=== PATIENT | female | born 1990 | race Caucasian/White ===

== ENCOUNTER 2018-10-04 15:46 | Inpatient (IN) ==
--- OUTSIDE RECORDS SUMMARY | 2018-10-04 15:49 | External Medical Summary | Continuity of Care Document ---
:1990 Author Name Kye M.D. 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 , M.D. Refills: 0 Effexor XR 150 MG Oral Capsule Extended Release 24 Hour; TAKE 3 CAPSULE Daily TDD:450 mg , M.D. Refills: 0 Xanax 1 MG Oral Tablet; TAKE 1 TABLET DAILY. , M.D. Refills: 0 Wellbutrin XL 150 MG Oral Tablet Extende d Release 24 Hour; TAKE 3 TABLETS DAILY. TDD:450 mg , M.D. Refills: 0 Adderall 10 MG Oral Tablet; TAKE 1 TABLET DAILY. , M.D. Refills: 0 Procedures History of Oral Surgery Tooth Extraction Status: Completed History of Pap Smear (+) Low Grade Squamous Intraepithelial Status: Completed Lesion Gynecologic Services Intrauterine Device (IUD) Insertion Immunizations Immunizations not documented Social History - Smoking Status Never smoker Plan of Treatment Planned Observations Planned Goals not documented Results No Known Results Results not documented
[2018-10-04] MEDS ORDERED: KETOROLAC TROMETHAMINE 15 MG/ML VIAL IV ONE (16:47)
[2018-10-04] MEDS ORDERED: cefTRIAXone SODIUM 1,000 MG/50 ML BAG IV STA (16:47)
[2018-10-04] MEDS ORDERED: SODIUM CHLORIDE 0.9% 1000ML 1,000 ML IV ONE (16:48)
[2018-10-04 17:25] LABS: Appearance Urine Turbid (Clear); Bilirubin Urine Negative (Negative); Blood Urine 1+ (Negative); Color Urine Yellow; Epithelial Cell Urine Auto >30 /lpf (0-5); Glucose Urine UA Negative (Negative); Ketones Urine Negative (Negative); Leukocyte Esterase Urine 2+ (Negative); Nitrite Urine Negative (Negative); Protein Urine 1+ (Negative); RBC Urine Automated 0-4 /hpf (0-4); Specific Gravity Urine 1.024 (1.000-1.030); Urobilinogen Urine Negative (Negative); WBC Urine Automated >30 /hpf (0-5)
[2018-10-04 17:39] LABS: Basophils # (auto) 0.03 K/uL (0-0.2); Basophils % (auto) 0.2 %; Eosinophils # (auto) 0.09 K/uL (0-0.5); Eosinophils % (auto) 0.6 %; Hematocrit (blood only) 35.3 % (37-47); Hemoglobin 11.7 g/dL (12.0-16.0); Immature Granulocytes # (auto) 0.04 K/uL (0.00-0.02); Immature Granulocytes % (auto) 0.3 %; Lymphocytes % (auto) 15.9 %; Mean Corpuscular Hgb Conc 33.1 g/dL (32-36); Mean Corpuscular Volume 87.4 fL (80-100); Mean Platelet Volume 10.8 fL (7.4-10.4); Monocytes # (auto) 1.92 K/uL (0.11-0.59); Monocytes % (auto) 13.3 %; Neutrophils # (auto) 10.09 K/uL (1.4-6.5); Neutrophils % (auto) 69.7 %; Platelet Count 333 K/uL (130-400); RDW Coefficient of Variation 14.5 % (11.5-14.5); RDW Standard Deviation 46.5 fL (36.4-46.3); Red Blood Count 4.04 M/uL (4.2-5.4); White Blood Count 14.47 K/uL (4.8-10.8)
--- NOTE | 2018-10-04 17:39 | Emergency Department Note ---
ED Visit Note I saw and assisted in the care of this patient with Dr. Ferguson. Please see her note for further details. . Resident Activity Tracking Resident Involvement: Resident Care Provided Care Provided: Adult ED
[2018-10-04 17:43] LABS: Bacteria Urine Automated 1+ (Negative)
[2018-10-04 17:47] LABS: Albumin Level 3.1 gm/dl (3.4-5.0); BUN Creatinine Ratio 10.6 (10-20); Calcium 8.5 mg/dl (8.5-10.1); Creatinine Clr Calc Pharmacy 51.7 ml/min; Potassium 3.1 mmol/L (3.5-5.1)
[2018-10-04 17:50] LABS: Albumin Globulin Ratio 0.8 (0.9-2); Bilirubin,Total 0.2 mg/dl (0.2-1); Total Protein 7.1 gm/dl (6.4-8.2)
[2018-10-04] MEDS ORDERED: IOVERSOL 100ml IV PRN (18:15)
--- NOTE | 2018-10-04 18:20 | Emergency Department Note ---
Entered by Domi Gordon acting as a scribe for Haily Ferguson MD History of Present Illness General Chief complaint: Back Injury/Pain Stated complaint: BACK PAIN, HEADACHE AND FEVER Time Seen by Provider: 10/04/18 16:56 Source: patient History of Present Illness Provider complaint: right flank pain Onset (ago): day(s) 2 Location: back, abdomen and right Pain Consistency: + constant Maximum Pain Intensity: 10 Quality: + other (pain) Associated symptoms: + denies other symptoms (urinary symptoms) and + headaches; no nausea/vomiting The patient is a 28 year old female who presents to the Emergency Department with complaints of constant right flank pain that began 3 days ago. The patient states that she has also had fevers and chills and that her highest temperature was at 102. She states that she was seen at [facility] 2 days ago, was told she has a UTI, and was placed on Cipro. The patient denies having any urinary symptoms. She reports having a headache but denies nausea and vomiting. The patient denies a history of kidney stones. She reports a history of ADHD and depression. Home Medications Home Medications Medication Instructions Recorded Confirmed Type alprazolam 1 mg PO QAM 10/04/18 10/04/18 History bupropion HCl 150 mg PO QAM 10/04/18 10/04/18 History bupropion HCl 300 mg PO QAM 10/04/18 10/04/18 History ciprofloxacin HCl 500 mg PO BID 10/04/18 10/04/18 History dextroamphetamine-amphetamine 10 mg PO DAILY 10/04/18 10/04/18 History dextroamphetamine-amphetamine 15 mg PO QAM 10/04/18 10/04/18 History dextroamphetamine-amphetamine 25 mg PO QAM 10/04/18 10/04/18 History lamotrigine 200 mg PO QAM 10/04/18 10/04/18 History venlafaxine 450 mg PO QAM 10/04/18 10/04/18 History Allergies Allergy/AdvReac Type Severity Reaction Status Date / Time gluten Allergy Unknown GI SYMPTOMS Verified 10/04/18 16:31 milk Allergy Unknown GI SYMPTOMS Verified 10/04/18 16:31 Past Med/Surg History Medical History Left ankle sprain (Acute) Social History Preferred Language: Armenian Communication Ability: Effective Alarm Signaler Required: No Beliefs That Will Affect Care: None Current Living Situation: Alone Feels Safe at Home: Yes Safety Concerns: Feels Safe At This Time Smoking Status: Never smoker Hx Alcohol Use: Yes Alcohol type: hard liquor Hx Substance Use: No Review of Systems See HPI for pertinent positives & negatives. and A total of 10 systems reviewed and were otherwise negative Physical Exam Vital Signs Vital Signs - 24 hr 10/04/18 15:53 10/04/18 17:00 10/04/18 17:38 Temperature 37.2 C Temperature Source Oral Sepsis Recent Fever Within 48 Hours Yes Sepsis New/Unexplained Change in Mental Status No Sepsis Action Taken by Nursing No Action Required Pulse Rate 98 H 79 Pulse Rate [Left] 79 Pulse Rhythm Regular Regular Pulse Strength Normal Respiratory Rate 20 16 12 Respiratory Effort / Characteristics Non-Labored Spontaneous Non-Labored Spontaneous Respiratory Depth Normal Respiratory Pattern Regular Blood Pressure 94/53 L Blood Pressure [Left Arm] 96/58 L Blood Pressure Mean 66 Blood Pressure Mean [Left Arm] 70 Blood Pressure Position Sitting Blood Pressure Position [Left Arm] Lying Pulse Oximetry 97 100 99 Oxygen Delivery Method Nasal Cannula Room Air Room Air 10/04/18 18:24 Temperature Temperature Source Sepsis Recent Fever Within 48 Hours Sepsis New/Unexplained Change in Mental Status Sepsis Action Taken by Nursing Pulse Rate Pulse Rate [Left] 73 Pulse Rhythm Pulse Strength Respiratory Rate 16 Respiratory Effort / Characteristics Non-Labored Spontaneous Respiratory Depth Respiratory Pattern Blood Pressure Blood Pressure [Left Arm] 100/55 L Blood Pressure Mean Blood Pressure Mean [Left Arm] 70 Blood Pressure Position Blood Pressure Position [Left Arm] Pulse Oximetry 99 Oxygen Delivery Method Room Air Vital signs reviewed. Patient was noted to be mildly hypotensive. General: Well-appearing female, in no significant distress. HEENT: No scleral icterus, PERRLA, neck supple. Atraumatic. Cardiovascular: Regular rate and rhythm, no extra sounds. Pulmonary: Clear to auscultation bilaterally, normal work of breathing. Abdomen: Soft, nontender, nondistended, positive bowel sounds. Musculoskeletal: Atraumatic, no peripheral edema. Right greater than left CVA tenderness. Neurologic: Patient awake alert and oriented x 3. Skin: Warm, dry, no rash Course 1632: The patient was evaluated by Dr. Sinclair-Resident. 1704: The patient was evaluated in room C3. A history and physical were performed. Administered Medications Hydromorphone HCl (Dilaudid) 0.5 mg IV Q3H PRN PRN Reason: Moderate Pain (4,5,6) Stop: 10/18/18 21:33 Last Admin: 10/05/18 07:44 Dose: 0.5 mg Documented by: [id number] Dextrose/Lactated Ringer's (D5w And Lactated Ringers) 1,000 mls @ 80 mls/hr IV .[id number] ANDRES Stop: 11/03/18 19:59 Last Admin: 10/05/18 07:45 Dose: 80 mls/hr Documented by: [id number] Infusion: 10/05/18 07:45 Dose: 80 mls/hr Documented by: [id number] Admin: 10/04/18 20:42 Dose: 80 mls/hr Documented by: [id number] Ciprofloxacin (Cipro) 400 mg in 200 mls @ 100 mls/hr IV PREOP ANDRES; Protocol Stop: 10/06/18 07:54 Last Admin: 10/05/18 11:25 Dose: 100 mls/hr Documented by: [id number] Miscellaneous (Order Awaiting Action) 1 ea N/A QS ANDRES Stop: 11/04/18 00:00 Last Admin: 10/05/18 10:06 Dose: Not Given Documented by: [id number] Admin: 10/05/18 00:21 Dose: Not Given Documented by: [id number] Miscellaneous (Order Awaiting Action) 1 ea N/A QS ANDRES Stop: 11/04/18 00:00 Last Admin: 10/05/18 10:06 Dose: Not Given Documented by: [id number] Admin: 10/05/18 00:22 Dose: Not Given Documented by: [id number] Discontinued Medications Ceftriaxone Sodium (Rocephin) 1,000 mg in 50 mls @ 100 mls/hr IV NOW STA Stop: 10/04/18 17:16 Last Infusion: 10/04/18 18:13 Dose: 0 mls/hr Documented by: [id number] Admin: 10/04/18 17:43 Dose: 100 mls/hr Documented by: [id number] Sodium Chloride (Nss 1000ml) 1,000 mls @ 999 mls/hr IV .Q1H1M ONE Stop: 10/04/18 17:48 Last Infusion: 10/04/18 18:17 Dose: 0 mls/hr Documented by: [id number] Admin: 10/04/18 17:16 Dose: 999 mls/hr Documented by: [id number] Ioversol (Optiray 320 100ml) 93 ml IV ONCE PRN PRN Reason: Interaction Checking Stop: 10/08/18 18:14 Last Admin: 10/04/18 18:16 Dose: 93 ml Documented by: [id number] Ketorolac Tromethamine (Toradol) 15 mg IV NOW ONE Stop: 10/04/18 16:48 Last Admin: 10/04/18 17:16 Dose: 15 mg Documented by: [id number] Morphine Sulfate (Morphine Sulfate) 2 mg IV NOW STA Stop: 10/04/18 18:38 Last Admin: 10/04/18 18:42 Dose: 2 mg Documented by: [id number] Ondansetron HCl (Zofran) 4 mg IV NOW STA Stop: 10/04/18 18:38 Last Admin: 10/04/18 18:42 Dose: 4 mg Documented by: [id number] Potassium Chloride (Klor-Con M20) 40 meq PO NOW STA Stop: 10/04/18 18:32 Last Admin: 10/04/18 18:42 Dose: 40 meq Documented by: [id number] Medical Decision Making Differential Diagnosis Differential diagnosis: Etiologies such as shingles, pyelonephritis/UTI, renal colic, appendicitis, dive rticulitis, mesenteric ischemia, torsion, aortic pathology, infections, inflammatory bowel disease, bowel obstruction, PUD, biliary pathology, as well as others were entertained. Medical Records Attestation: I reviewed the patient's medical records. Home Medications Current Medication List: was personally reviewed by me Laboratory Data Attestation: I reviewed the patient's lab results. Result diagrams: 10/05/18 08:32 10/05/18 08:32 Lab Results 10/04/18 10/04/18 10/04/18 Range/Units 16:32 16:32 16:37 WBC 14.47 H (4.8-10.8) K/uL RBC 4.04 L (4.2-5.4) M/uL Hgb 11.7 L (12.0-16.0) g/dL Hct 35.3 L (37-47) % MCV 87.4 (80-100) fL MCH 29.0 (25-34) pg MCHC 33.1 (32-36) g/dL RDW Std Deviation 46.5 H (36.4-46.3) fL RDW Coeff of Omar 14.5 (11.5-14.5) % Plt Count 333 (130-400) K/uL MPV 10.8 H (7.4-10.4) fL Immature Gran % (Auto) 0.3 % Neut % (Auto) 69.7 % Lymph % (Auto) 15.9 % Schley % (Auto) 13.3 % Eos % (Auto) 0.6 % Baso % (Auto) 0.2 % Immature Gran # (Auto) 0.04 H (0.00-0.02) K/uL Neut # (Auto) 10.09 H (1.4-6.5) K/uL Lymph # (Auto) 2.30 (1.2-3.4) K/uL Schley # (Auto) 1.92 H (0.11-0.59) K/uL Eos # (Auto) 0.09 (0-0.5) K/uL Baso # (Auto) 0.03 (0-0.2) K/uL Sodium 136 (136-145) mmol/L Potassium 3.1 L (3.5-5.1) mmol/L Chloride 101 (98-107) mmol/L Carbon Dioxide 27 (21-32) mmol/L Anion Gap 8.0 (3-11) BUN 13 (7-18) mg/dl Creatinine 1.27 H (0.6-1.2) mg/dl Est Cr Clr Drug Dosing 51.7 ml/min Est GFR ( Amer) 66.0 Est GFR (Non-Af Amer) 57.0 BUN/Creatinine Ratio 10.6 (10-20) Glucose 80 (70-99) mg/dl Lactate (0.4-2.0) mmol/L Calcium 8.5 (8.5-10.1) mg/dl Total Bilirubin 0.2 (0.2-1) mg/dl AST 6 L (15-37) U/L ALT 15 (12-78) U/L Alkaline Phosphatase 78 (45-117) U/L Total Protein 7.1 (6.4-8.2) gm/dl Albumin 3.1 L (3.4-5.0) gm/dl Globulin 4.0 (2.5-4.0) gm/dl Albumin/Globulin Ratio 0.8 L (0.9-2) Urine Color Urine Appearance (Clear) Urine pH (4.5-7.5) Ur Specific [place] (1.000-1.030) Urine Protein (Negative) Urine Glucose (UA) (Negative) Urine Ketones (Negative) Urine Blood (Negative) Urine Nitrite (Negative) Urine Bilirubin (Negative) Urine Urobilinogen (Negative) Ur Leukocyte Esterase (Negative) Urine WBC (Auto) (0-5) /hpf Urine RBC (Auto) (0-4) /hpf U Hyaline Cast (Auto) (0-5) /lpf U Epithel Cells (Auto) (0-5) /lpf Urine Bacteria (Auto) (Negative) Granular Casts (0) /lpf Urine Yeast POC Ur Test NEG (NEG) 10/04/18 10/04/18 Range/Units 16:37 17:09 WBC (4.8-10.8) K/uL RBC (4.2-5.4) M/uL Hgb (12.0-16.0) g/dL Hct (37-47) % MCV (80-100) fL MCH (25-34) pg MCHC (32-36) g/dL RDW Std Deviation (36.4-46.3) fL RDW Coeff of Omar (11.5-14.5) % Plt Count (130-400) K/uL MPV (7.4-10.4) fL Immature Gran % (Auto) % Neut % (Auto) % Lymph % (Auto) % Schley % (Auto) % Eos % (Auto) % Baso % (Auto) % Immature Gran # (Auto) (0.00-0.02) K/uL Neut # (Auto) (1.4-6.5) K/uL Lymph # (Auto) (1.2-3.4) K/uL Schley # (Auto) (0.11-0.59) K/uL Eos # (Auto) (0-0.5) K/uL Baso # (Auto) (0-0.2) K/uL Sodium (136-145) mmol/L Potassium (3.5-5.1) mmol/L Chloride (98-107) mmol/L Carbon Dioxide (21-32) mmol/L Anion Gap (3-11) BUN (7-18) mg/dl Creatinine (0.6-1.2) mg/dl Est Cr Clr Drug Dosing ml/min Est GFR ( Amer) Est GFR (Non-Af Amer) BUN/Creatinine Ratio (10-20) Glucose (70-99) mg/dl Lactate 0.8 (0.4-2.0) mmol/L Calcium (8.5-10.1) mg/dl Total Bilirubin (0.2-1) mg/dl AST (15-37) U/L ALT (12-78) U/L Alkaline Phosphatase (45-117) U/L Total Protein (6.4-8.2) gm/dl Albumin (3.4-5.0) gm/dl Globulin (2.5-4.0) gm/dl Albumin/Globulin Ratio (0.9-2) Urine Color Yellow Urine Appearance Turbid A (Clear) Urine pH 5.0 (4.5-7.5) Ur Specific [place] 1.024 (1.000-1.030) Urine Protein 1+ H (Negative) Urine Glucose (UA) Negative (Negative) Urine Ketones Negative (Negative) Urine Blood 1+ H (Negative) Urine Nitrite Negative (Negative) Urine Bilirubin Negative (Negative) Urine Urobilinogen Negative (Negative) Ur Leukocyte Esterase 2+ H (Negative) Urine WBC (Auto) >30 H (0-5) /hpf Urine RBC (Auto) 0-4 (0-4) /hpf U Hyaline Cast (Auto) 5-10 H (0-5) /lpf U Epithel Cells (Auto) >30 H (0-5) /lpf Urine Bacteria (Auto) 1+ H (Negative) Granular Casts 1-5 H (0) /lpf Urine Yeast Not Reportable POC Ur Test (NEG) Imaging Data Radiologist's Impression: CT SCAN OF THE ABDOMEN AND PELVIS WITH IV CONTRAST CLINICAL HISTORY: Fever. Left flank pain. COMPARISON STUDY: No priors. TECHNIQUE: Following the IV administration of 93 cc of Optiray 320, CT scan of the abdomen and pelvis is performed from the lung bases to the proximal femora. Images are reviewed in the axial, sagittal, and coronal planes. IV contrast was administered without complication. A dose lowering technique was utilized adhering to the principles of ALARA. CT DOSE: 267.04 mGy.cm FINDINGS: Lung bases: The heart is normal in size and without pericardial effusion. The lung bases are clear. Liver: The contrast-enhanced liver is normal in size, contour, and attenuation. There is no intrahepatic biliary ductal dilatation. The hepatic veins and portal veins are patent. Periportal edema is noted. Gallbladder: Unremarkable. Spleen: Normal in size and attenuation. Pancreas: Unremarkable. Adrenal glands: Unremarkable. Kidneys: The right kidney appears enlarged and edematous. There is an 8 mm obstr ucting calculus in the distal right ureter as seen on image #326. This is located approximately 3 cm above the vesicoureteral junction and causes moderate right hydroureteronephrosis. There are numerous (greater than 20) additional nonobstructing right renal calculi which measure up to 10 mm. There are at least 2 nonobstructing left renal calculi which measure up to 6 mm. There is no left- sided hydronephrosis. The left kidney enhances homogeneously. There is heterogeneous enhancement of the right kidney with associated perinephric stranding, as well as urothelial thickening within the right renal pelvis and the right ureter. Abdominal vasculature: The abdominal aorta is normal in course and caliber. Bowel: There is moderate constipation. No bowel obstruction is seen. The appendix is well-visualized and normal. Peritoneum: There is no intraperitoneal free air or abdominal ascites. Lymphadenopathy: None. Pelvic viscera: The bladder is decompressed and grossly unremarkable. The uterus and adnexa are normal as imaged noting an intrauterine device in place. Skeletal structures: No lytic or blastic lesions are seen. IMPRESSION: 1. There is an 8 mm obstructing calculus in the distal right ureter. This causes moderate right hydroureteronephrosis. 2. There are numerous (at least 20) additional nonobstructing right renal calculi. 3. There are least 2 nonobstructing left renal calculi. 4. The right kidney appears enlarged and edematous, with associated perinephric stranding, urothelial thickening and enhancement, and heterogeneous perfusion. This may be related to obstruction/hydronephrosis. Correlate clinically and with urinalysis for evidence of superimposed infection. 5. Moderate constipation. 6. Additional findings as above. Electronically signed by: Dave Szymanski M.D. 10/04/2018 7:04 PM Dictated: 10/04/181856 Transcribed: 10/04/181856 Blood Pressure Blood Pressure Findings: Low blood pressure MDM Narrative This patient was evaluated and appeared to be in no significant distress. IV access was obtained and laboratory work was drawn. Patient was placed on lunchroom monitor and found to be slightly hypotensive, which she states is her baseline. Patient was hydrated with normal saline solution. She was medicated with IV Toradol for her discomfort. Urinalysis is greatly concerning for infection, although the patient has been on cipro. CT imaging of the abdomen and pelvis was performed and reveals an obstructing right ureteral calculus. Patient was given IV ceftriaxone and IV morphine/Zofran for her discomfort that remained. She was informed of the findings and discussed with Dr. Wiggins of urology. He will evaluate the patient for further management. He has requested medical consultation for admission. The hospitalist service was consulted. Patient is aware of the plan and agrees. Impression & Plan Hydronephrosis with renal and ureteral calculous obstruction, Pyelonephritis Discharge Plan Visit Data *Final* Discharge Date/Time: 10/04/18 21:15 Chief Complaint: Back Injury/Pain Stated Complaint: BACK PAIN, HEADACHE AND FEVER ED Provider: Haily Ferguson ED Midlevel Provider: Fidel Sinclair Discharge Problem: Hydronephrosis with renal and ureteral calculous obstruction, Pyelonephritis Patient Disposition: Admitted As Inpatient Discharge Instructions Interventions: ED Discharge Assessment Last Done: 10/04/18 21:15 The scribe's documentation has been prepared under my direction and personally reviewed by me in its entirety. I confirm that the note above accurately reflects all work, treatment, procedures, and medical decision making performed by me.
[2018-10-04] MEDS ORDERED: POTASSIUM CHLORIDE 20 MEQ TABCR PO STA (18:31)
[2018-10-04] MEDS ORDERED: MoRPHine SULFATE 2 MG/ML CARP IV STA (18:37)
[2018-10-04] MEDS ORDERED: ONDANSETRON INJ 2 MG/ML 2 ML VIAL IV STA (18:37)
--- NOTE | 2018-10-04 19:05 | CT Scan Report ---
CT SCAN OF THE ABDOMEN AND PELVIS WITH IV CONTRAST CLINICAL HISTORY: Fever. Left flank pain. COMPARISON STUDY: No priors. TECHNIQUE: Following the IV administration of 93 cc of Optiray 320, CT scan of the abdomen and pelvi s is performed from the lung bases to the proximal femora. Images are reviewed in the axial, sagittal , and coronal planes. IV contrast was administered without complication. A dose lowering technique wa s utilized adhering to the principles of ALARA. CT DOSE: 267.04 mGy.cm FINDINGS: Lung bases: The heart is normal in size and without pericardial effusion. The lung bases are clear. Liver: The contrast-enhanced liver is normal in size, contour, and attenuation. There is no intrahepa tic biliary ductal dilatation. The hepatic veins and portal veins are patent. Periportal edema is not ed. Gallbladder: Unremarkable. Spleen: Normal in size and attenuation. Pancreas: Unremarkable. Adrenal glands: Unremarkable. Kidneys: The right kidney appears enlarged and edematous. There is an 8 mm obstructing calculus in th e distal right ureter as seen on image #326. This is located approximately 3 cm above the vesicourete ral junction and causes moderate right hydroureteronephrosis. There are numerous (greater than 20) ad ditional nonobstructing right renal calculi which measure up to 10 mm. There are at least 2 nonobstru cting left renal calculi which measure up to 6 mm. There is no left-sided hydronephrosis. The left ki dney enhances homogeneously. There is heterogeneous enhancement of the right kidney with associated p erinephric stranding, as well as urothelial thickening within the right renal pelvis and the right ur eter. Abdominal vasculature: The abdominal aorta is normal in course and caliber. Bowel: There is moderate constipation. No bowel obstruction is seen. The appendix is well-visualized and normal. Peritoneum: There is no intraperitoneal free air or abdominal ascites. Lymphadenopathy: None. Pelvic viscera: The bladder is decompressed and grossly unremarkable. The uterus and adnexa are rex l as imaged noting an intrauterine device in place. Skeletal structures: No lytic or blastic lesions are seen. IMPRESSION: 1. There is an 8 mm obstructing calculus in the distal right ureter. This causes moderate right hydro ureteronephrosis. 2. There are numerous (at least 20) additional nonobstructing right renal calculi. 3. There are least 2 nonobstructing left renal calculi. 4. The right kidney appears enlarged and edematous, with associated perinephric stranding, urothelial thickening and enhancement, and heterogeneous perfusion. This may be related to obstruction/hydronep hrosis. Correlate clinically and with urinalysis for evidence of superimposed infection. 5. Moderate constipation. 6. Additional findings as above. Electronically signed by: Dave Szymanski M.D. 10/04/2018 7:04 PM
--- NOTE | 2018-10-04 20:13 | History & Physical Report ---
Date of Service October 04, 2018 Assessment & Plan (1) Left nephrolithiasis: Fernanda is a 28-year-old female with past medical history of ADHD/depression/anxiety who presents with 2 days of left flank pain, achiness, chills, and reported fever at home who was found to have an 8 mm obstructing emanuel culus in the right distal ureter and possible right hydronephrosis plus/minus superimposed infection. Right obstructing 8 mm calculus CTabdomen shows 8 mm calculus and moderate hydroureteronephrosis Numerous additional nonobstructing right renal calculi, 2 nonobstructing left renal calculi Right kidney with perinephric stranding, urothelial thickening, and enlargement/edema. She is currently afebrile without tachycardia. Preliminary UA from walk-in clinic showed GNR for which she had taken 2 days of ciprofloxacin. Now S/P 1 dose of Rocephin in the ED. Urology consulted. S/P Toradol 15 mg, Zofran, morphine in the ED. Dilaudid 0.5 mg every 3 hours as needed pain control N.p.o. in anticipation of cystoscopy Continue Rocephin daily for possible pyelonephritis. Cipro held. Blood cultures and urine cultures pending, patient was on Cipro x2 days before these were drawn Left back mass Exquisitely tender, but without warmth/erythema/fluctuance Denies traumatic injury at onset Unclear duration, she did not notice it a month ago but is unsure how long it is been there Further management per primary team Anxiety/depression Continue QUALITY ANALYST bupropion 300 mg every morning Continue QUALITY ANALYST lamotrigine 200 mg Continue QUALITY ANALYST venlafaxine for 50 mg Continue QUALITY ANALYST alprazolam 1 mg every morning ADHD Held QUALITY ANALYST dextroamphetamine-amphetamine Hypotension She reports a history of lightheadedness/dizziness when standing in a baseline blood pressure in the 90s Clinically suggestive of pots/orthostatic hypotension Diet: N.p.o. DVT prophylaxis: SCDs CODE STATUS: Full code Disposition: Med/surge pending definitive stone treatment (2) Anxiety associated with depression: (3) ADHD: (4) Pyelonephritis: History of Present Illness Chief Complaint: Left flank pain, abdominal pain Primary Care Provider: NO PCP Fernanda is a 28-year-old female with a past medical history of ADHD and depression who presents with bilateral flank pain, aches, headache, and chills since Tuesday. She reports her symptoms started on Tuesday with achiness, left lower back pain, headache, and chills. She was not having any dysuria or polyuria. She went to the walk-in clinic and was prescribed ciprofloxacin which she has been taking since Tuesday. She notes that her pain did not improve, and it was the pain that brought her into the emergency department today. She reports she has had a 102 degree fever at home on Tuesday, and 10/10 sharp achy pain in her back and flank L>R before admission. She denies nausea, vomiting, diarrhea, constipation. No polyuria, no hematuria, no dysuria. She has no history of kidney stones. No family history of kidney stones. She denies shortness of breath, chest pain, chest pressure. She endorses low blood pressure at baseline, and frequently gets dizzy and feels like she is going to pass out when she stands up at baseline. She has not seen a doctor for this before. On admission she received IV Rocephin, Toradol 15 mg, and IV morphine. She reports that with these interventions her pain has decreased to a 1/10 at rest. She last took her medications this morning. QUALITY ANALYST medications include alprazolam, bupropion, ciprofloxacin, dextroamphetamine, lamotrigine, and venlafaxine. M Hx: As noted above SHX: Denies history of surgeries Family history: Endorses pancreatic cancer in her father, hypertension in her mother. Denies family history of coronary artery disease, kidney disease, bleeding/clotting disease, stroke, diabetes. Social: Lives in [facility] in [place]. Tobacco use: No current or former Alcohol: Rare 1-3 times a month Recreational drug: Endorses remote marijuana use, no recreational drug use recently. CODE STATUS: Full code Allergies Allergy/AdvReac Type Severity Reaction Status Date / Time gluten Allergy Unknown GI SYMPTOMS Verified 10/04/18 16:31 milk Allergy Unknown GI SYMPTOMS Verified 10/04/18 16:31 Home Medications Home Medications Medication Instructions Recorded Confirmed Type alprazolam 1 mg PO QAM 10/04/18 10/04/18 History bupropion HCl 150 mg PO QAM 10/04/18 10/04/18 History bupropion HCl 300 mg PO QAM 10/04/18 10/04/18 History ciprofloxacin HCl 500 mg PO BID 10/04/18 10/04/18 History dextroamphetamine-amphetamine 10 mg PO DAILY 10/04/18 10/04/18 History dextroamphetamine-amphetamine 15 mg PO QAM 10/04/18 10/04/18 History dextroamphetamine-amphetamine 25 mg PO QAM 10/04/18 10/04/18 History lamotrigine 200 mg PO QAM 10/04/18 10/04/18 History venlafaxine 450 mg PO QAM 10/04/18 10/04/18 History Past Med/Surg History Medical History Left ankle sprain (Acute) Social History Preferred Language: Omani Communication Ability: Effective Roller Shop Supervisor Required: No Beliefs That Will Affect Care: None Current Living Situation: Alone Feels Safe at Home: Yes Safety Concerns: Feels Safe At This Time Smoking Status: Never smoker Hx Alcohol Use: Yes Alcohol type: hard liquor Hx Substance Use: No Review of Systems Review of Systems: Constitutional: Endorses fever, chills, sweats, fatigue. Eyes: Denies vision change, blurry vision, double vision. ENT: Denies ear pain, sore throat, sinus pain Cardiovascular: Denies chest pressure, palpitations, extremity swelling. Endorses radiating pain from her flank and abdomen into her chest. Respiratory: Denies shortness of breath, cough, sputum production, difficulty breathing Gastrointestinal: Endorses abdominal pain and flank pain as noted in HPI. Genitourinary: Denies pain with urination, urinary urgency, urinary frequency Musculoskeletal: Denies weakness, joint aches/pain. Endorses left lower back pain and a lump which is painful to palpation peer Integumentary:Denies rash, lesions, bruising Neurological: Denies headache, numbness, tingling, focal weakness at time of visit. Endorses headache QUALITY ANALYST. Physical Exam Physical Exam: General: A&Ox3. NAD. Cooperative. Skin warm and moist. HEENT: Atraumatic, normocephalic. Pupils equal and reactive to light and accommodation. No facial asymmetry. Facial strength intact. Facial sensation intact. No anterior or posterior cervical or clavicular adenopathy. Pulm: CTAB A&P. -wheezes, -rales, -rhonchi. Symmetrical chest rise. No increase work of breathing. No respiratory distress. Cardiac: RRR, -mrg. Radial pulses intact and symmetrical. Abdominal: Tender to palpation in left lower quadrant, mild right quadrant pain without rebound. Abdomen soft. Bowel sounds intact. Back: R CVA tenderness is present. L tenderness at a 4 cm, firm, nonfluctuant, tender subcutaneous mass without warmth/erythema is appreciated in the left paraspinal region at approximately T7-T9. It is exquisitely tender to the touch. Extremity: Moves all extremities equally. Sensation intact in distal extremities. 5/5 finger flexion/extension, wrist flexion/extension, elbow flexion/extension, knee flexion, ankle dorsiflexion/plantarflexion. PT pulses intact and symmetrical. Results & Data Vital Signs (Past 12 Hours) Vital Signs Temp Pulse Pulse Resp BP BP Pulse Ox 10/04/18 18:24 73 16 100/55 L 99 10/04/18 17:38 79 12 96/58 L 99 10/04/18 17:00 79 16 100 10/04/18 15:53 37.2 C 98 H 20 94/53 L 97 Supervising Physician Co-Signing Physician Notes Pt seen/examined in conjunction with resident MD. Orders and plan of admission formulated with resident. 28 y/o F Hx depression. Presents with R back pain initially and then developed L back and flank pain with a fever of 102. Imaging is described below. 1. There is an 8 mm obstructing calculus in the distal right ureter. This causes moderate right hydroureteronephrosis. 2. There are numerous (at least 20) additional nonobstructing right renal calculi. 3. There are least 2 nonobstructing left renal calculi. 4. The right kidney appears enlarged and edematous, with associated perinephric stranding, urothelial thickening and enhancement, and heterogeneous perfusion. This may be related to obstruction/hydronephrosis. Correlate clinically and with urinalysis for evidence of superimposed infection. OE AAO x 3 S1,2 R CTAB She is tender BL at her back - there is also a painful superficial lump on her mid back No CCE P: She is admitted with pyelonephritis and an obstructing L calculus. She is placed on antibiotics, IVF, analgesics and will be evaluated by urology as intervention will be necessary. It not clear what the lump on her back is. A neuroma might make sense. An US is pending and this can likely be worked up further in the outpt setting. PG Care Time/CCT Total # of Minutes Spent Total Time Spent with Patient: Total time spent is greater than 50% in coordination of care (as documented) at patient's floor/unit and/or counseling patient:
--- NOTE | 2018-10-04 20:30 | Urology Consultation ---
Date of Consultation October 04, 2018 Assessment & Plan (1) Nephrocalcinosis: Nephrocalcinosis/Medullary Sponge Kidney Lengthy discussion today including review of her history as well as her family history She believes she was told once in the past that she had medullary sponge kidney but was uncertain what this meant She has never had a kidney stone treated nor passed a stone before She currently has a distal right ureteral calculus, she is nontoxic, she is hemodynamically stable We have discussed immediate cystoscopy and ureteral stent versus observation overnight with potential for definitive treatment tomorrow (ureteroscopy laser lithotripsy) We will attempt to delay surgery until tomorrowplan to keep her n.p.o. now While this will address her short-term/acute needs, she will need long-term follow-up including nephrology consultation to determine options for treatment o f her nephrocalcinosis/medullary sponge kidney History of Present Illness History of Present Illness Healthy 28-year-old female who presents secondary to back/flank pain and general ill feeling initially presented to an outside urgent care 2 days ago with similar feelings, but also with chills and rigors Reports a temperature of 102 Fahrenheit at that time Diagnosed with a UTI and treated with Cipro No further fevers, no further chills/rigors Continued back and flank pain Upon arrival in the emergency room, she is hemodynamically stable She underwent CT and laboratory examinations She has a leukocytosis of 14,000 CT shows nephrocalcinosis/medullary sponge kidney with significant calcium deposition on the right and to a lesser extent the left. Her right kidney is notably enlarged with modest hydronephrosis and a distal right ureteral calculus Allergies Allergy/AdvReac Type Severity Reaction Status Date / Time gluten Allergy Unknown GI SYMPTOMS Verified 10/04/18 16:31 milk Allergy Unknown GI SYMPTOMS Verified 10/04/18 16:31 Home Medications Home Medications Medication Instructions Recorded Confirmed Type alprazolam 1 mg PO QAM 10/04/18 10/04/18 History bupropion HCl 150 mg PO QAM 10/04/18 10/04/18 History bupropion HCl 300 mg PO QAM 10/04/18 10/04/18 History ciprofloxacin HCl 500 mg PO BID 10/04/18 10/04/18 History dextroamphetamine-amphetamine 10 mg PO DAILY 10/04/18 10/04/18 History dextroamphetamine-amphetamine 15 mg PO QAM 10/04/18 10/04/18 History dextroamphetamine-amphetamine 25 mg PO QAM 10/04/18 10/04/18 History lamotrigine 200 mg PO QAM 10/04/18 10/04/18 History venlafaxine 450 mg PO QAM 10/04/18 10/04/18 History Patient History Medical History Left ankle sprain (Acute) Social History Preferred Language: [place] Feels Safe at Home: Yes Smoking Status: Never smoker Review of Systems Constitutional: as per Subjective / HPI, + body aches and + fatigue; no fever and no chills Respiratory: no cough and no dyspnea Cardiovascular: no chest pain and no dyspnea Gastrointestinal: + abdominal pain and + nausea Genitourinary: as per Subjective / HPI Musculoskeletal: + back pain; no neck pain Integumentary: no rash Endocrine: no fatigue Physical Exam Physical Exam: AFVSS NAD comfortable appearing AAOx3 no resp distress RRR - no edema tender on the right flank, no rebound, no guarding no rash no adenopathy Results & Data Vital Signs (Past 12 Hours) Vital Signs Temp Pulse Pulse Resp BP BP Pulse Ox 10/04/18 18:24 73 16 100/55 L 99 10/04/18 17:38 79 12 96/58 L 99 10/04/18 17:00 79 16 100 10/04/18 15:53 37.2 C 98 H 20 94/53 L 97
[2018-10-04] MEDS: D5W AND LACTATED RINGERS 1,000 ML IV SCH (20:42)
[2018-10-04] MEDS ORDERED: HYDROmorphone INJ 0.5 MG/0.5 ML SYR IV PRN (21:34)
[2018-10-05] MEDS: D5W AND LACTATED RINGERS 1,000 ML IV SCH (07:45)
[2018-10-05] MEDS ORDERED: CIPROFLOXACIN 400 MG/200 ML BAG IV SCH (07:55)
--- NOTE | 2018-10-05 07:57 | Urology Progress Note ---
Date of Service October 05, 2018 Assessment & Plan (1) Right ureteral stone: 8mm distal right ureteral stone with resulting hydronephrosis. Additional bilateral renal calculi. Right renal colic persisting. Patient remains very interested in uscope today for treatment of her obstructing stone as discussed with Dr. Wiggins last evening. Procedure details, risks, stent irritation, anticipated recovery again reviewed. All patient questions answered. Preop Cipro refrigeration specialist. Patient added to OR schedule later this morning for cystoscopy, right ureteroscopy, laser lithotripsy, with right ureteral stent placement. She remains NPO. Subjective 28 YO female with obstructing 8mm distal right ureteral stone, resulting hydro, and right medullary sponge kidney. Her initial consultation is reviewed. Right renal colic persisting today, not much sleep overnight. No stone passage. Remains very interested in surgical intervention today. Voiding spontaneously. Review of Systems Review of Systems: All systems reviewed & are unremarkable except as noted in HPI & below Physical Exam Physical Exam: WN/WD NAD. Resp effort normal. No JVD. Abd soft/nontender. : bladder nontender/nondistended. A&O x3, appropriate affect. Results & Data Vital Signs (Past 12 Hours) Vital Signs Temp Pulse Resp BP BP Pulse Ox 10/05/18 07:30 37.0 C 58 L 16 98/64 L 99 10/05/18 06:45 60 91/59 L 10/04/18 23:39 36.6 C 65 16 89/58 L 98 10/04/18 21:41 36.4 C L 62 18 88/53 L 98 10/04/18 20:34 66 18 87/50 L 98
[2018-10-05 08:52] LABS: Basophils # (auto) 0.02 K/uL (0-0.2); Basophils % (auto) 0.2 %; Eosinophils # (auto) 0.16 K/uL (0-0.5); Hematocrit (blood only) 31.9 % (37-47); Hemoglobin 10.3 g/dL (12.0-16.0); Immature Granulocytes # (auto) 0.02 K/uL (0.00-0.02); Immature Granulocytes % (auto) 0.2 %; Lymphocytes # (auto) 1.67 K/uL (1.2-3.4); Lymphocytes % (auto) 20.6 %; Mean Corpuscular Hgb Conc 32.3 g/dL (32-36); Mean Corpuscular Volume 89.9 fL (80-100); Mean Platelet Volume 10.4 fL (7.4-10.4); Monocytes % (auto) 11.1 %; Neutrophils # (auto) 5.33 K/uL (1.4-6.5); Neutrophils % (auto) 65.9 %; Platelet Count 287 K/uL (130-400); RDW Coefficient of Variation 14.7 % (11.5-14.5); RDW Standard Deviation 48.7 fL (36.4-46.3); Red Blood Count 3.55 M/uL (4.2-5.4)
[2018-10-05] MEDS ORDERED: ALPRAZolam 0.5 MG TABLET PO SCH (09:00)
[2018-10-05] MEDS ORDERED: BuPROPion XL 150 MG TABCR PO SCH (09:00)
[2018-10-05] MEDS ORDERED: lamoTRIgine 100 MG TAB PO SCH (09:00)
[2018-10-05] MEDS ORDERED: VENLAFAXINE HCL XR 150 MG CAPXR PO SCH (09:00)
[2018-10-05] MEDS ORDERED: BuPROPion XL 300 MG TABCR PO SCH (09:00)
[2018-10-05 09:34] LABS: BUN Creatinine Ratio 10.7 (10-20); Calcium 8.3 mg/dl (8.5-10.1); Creatinine Clr Calc Pharmacy 66.7 ml/min; Est GFR (African American) 90.3; Potassium 4.1 mmol/L (3.5-5.1)
--- NOTE | 2018-10-05 10:43 | Anesthesiology Consultation ---
Date of Service October 05, 2018 Assessment & Plan (1) Encounter for pre-operative examination: Chart Review Chart Review: Acceptable Risk for Surgery and Patient NOT seen in Pre Admission Testing Consults Requested none ASA ASA2 Proposed Anesthesia Anesthesia Type: General Risk / Benefits Reviewed With: PT / POA / Parent / Guardian, Accepts Plan and In formed Consent Obtained History Surgery Operation Date: 10/05/18 10:50 Proposed Procedures p Cystoscopy, Right Ureteroscopy, Laser Lithotripsy, Right Ureteral Stent Placement - Yayo Stafford MD Height/Weight Height: 5 ft 2 in Weight: 49.895 kg Allergies Allergy/AdvReac Type Severity Reaction Status Date / Time gluten Allergy Unknown GI SYMPTOMS Verified 10/04/18 16:31 milk Allergy Unknown GI SYMPTOMS Verified 10/04/18 16:31 Medications Home Medications Medication Instructions Recorded Confirmed Last Taken alprazolam 1 mg PO QAM 10/04/18 10/04/18 10/04/18 bupropion HCl 150 mg PO QAM 10/04/18 10/04/18 10/04/18 bupropion HCl 300 mg PO QAM 10/04/18 10/04/18 10/04/18 ciprofloxacin HCl 500 mg PO BID 10/04/18 10/04/18 10/04/18 AM DOSE dextroamphetamine-amphetamine 10 mg PO DAILY 10/04/18 10/04/18 Unknown dextroamphetamine-amphetamine 15 mg PO QAM 10/04/18 10/04/18 10/04/18 dextroamphetamine-amphetamine 25 mg PO QAM 10/04/18 10/04/18 10/04/18 lamotrigine 200 mg PO QAM 10/04/18 10/04/18 10/04/18 venlafaxine 450 mg PO QAM 10/04/18 10/04/18 10/04/18 Active Medications Generic Name Dose Route Start Last Admin Trade Name Freq PRN Reason Stop Dose Admin Hydromorphone HCl 0.5 mg 10/04/18 21:34 10/05/18 07:44 Dilaudid IV 10/18/18 21:33 0.5 mg Q3H PRN Administration Moderate Pain (4,5,6) Dextrose/Lactated Ringer's 1,000 mls @ 80 mls/hr 10/04/18 20:00 10/05/18 07:45 D5w And Lactated Ringers IV 11/03/18 19:59 80 mls/hr .[id number] ANDRES Administration Miscellaneous 1 ea 10/05/18 00:00 10/05/18 10:06 Order Awaiting Action N/A 11/04/18 00:00 Not Given QS ANDRES Miscellaneous 1 ea 10/05/18 00:00 10/05/18 10:06 Order Awaiting Action N/A 11/04/18 00:00 Not Given QS ANDRES NPO Date Last Intake of Fluids: 10/05/18 Time Last Intake of Fluids: 18:00 Last Intake of Solids Comment: pt is unsure of the last time she ate solid food Past Medical History Medical History Left ankle sprain (Acute) Exercise / Class Metabolic Activity II 4-5 Yardwork/Stairs/Walk up hill Past Anesthesia History No Hx of Anesthesia Complications and No Family Hx of Anesthesia Complications History of PONV No Hx of PONV and No Hx of Motion Sickness Social History Smoking Status: Never smoker Hx Alcohol Use: Yes Alcohol type: hard liquor alcohol intake frequency: a few times a month Hx Substance Use: No substance use type: does not use Physical Exam Vital Signs Last Vital Signs Temp 37.0 C 10/05/18 07:30 Pulse 58 L 10/05/18 07:30 Resp 16 10/05/18 07:30 BP 98/64 L 10/05/18 07:30 Pulse Ox 99 10/05/18 07:30 ENMT Mouth: no dentition abnormality Thyromental Distance: > or= 3.5 Finger Breadths Mallampati Class: II Neck normal visual inspection Respiratory normal respiratory effort Auscultation: lungs clear to auscultation bilaterally Cardiovascular Rate/Rhythm: regular rate and regular rhythm Psychiatric Orientation: alert Testing Laboratory Results 10/05/18 08:32 10/05/18 08:32 Urine Color Yellow 10/04/18 16:37 Urine Appearance Turbid (Clear) A 10/04/18 16:37 Urine pH 5.0 (4.5-7.5) 10/04/18 16:37 Ur Specific Docena 1.024 (1.000-1.030) 10/04/18 16:37 Urine Protein 1+ (Negative) H 07/17/19 16:37 Urine Glucose (UA) Negative (Negative) 10/04/18 16:37 Urine Ketones Negative (Negative) 10/04/18 16:37 Urine Nitrite Negative (Negative) 10/04/18 16:37 Ur Leukocyte Esterase 2+ (Negative) H 10/04/18 16:37 Urine WBC (Auto) >30 /hpf (0-5) H 10/04/18 16:37 Urine RBC (Auto) 0-4 /hpf (0-4) 10/04/18 16:37 U Hyaline Cast (Auto) 5-10 /lpf (0-5) H 10/04/18 16:37 U Epithel Cells (Auto) >30 /lpf (0-5) H 10/04/18 16:37 Urine Bacteria (Auto) 1+ (Negative) H 10/04/18 16:37 10/04/18 16:37 POC Ur Test NEG
[2018-10-05] MEDS ORDERED: fentaNYL citrate 100 MCG/2 ML VIAL IV PRN (10:44)
[2018-10-05] MEDS ORDERED: ONDANSETRON INJ 2 MG/ML 2 ML VIAL IV PRN (10:44)
[2018-10-05] MEDS ORDERED: PROMETHAZINE HCL 6.25 MG in SODIUM CHLORIDE 0.9% 50 ML IV PRN (10:44)
[2018-10-05] MEDS ORDERED: ATROPINE SULFATE 0.1 MG/ML 10ML SYR IV PRN (10:44)
[2018-10-05] MEDS ORDERED: ePHEDrine sulfate 50 MG/ML AMP IV PRN (10:44)
[2018-10-05] MEDS ORDERED: DEXAMETHASONE SOD INJ 4 MG/ML VIAL ONE (10:49)
[2018-10-05] MEDS ORDERED: PROPOFOL IV EMULSION 10 MG/ML 20 ML VIAL IV ONE (10:49)
[2018-10-05] MEDS ORDERED: LIDOCAINE HCL 2% 2 ML VIAL/AMP(20MG/ML) INFIL ONE (10:49)
[2018-10-05] MEDS ORDERED: ONDANSETRON INJ 2 MG/ML 2 ML VIAL ONE (10:49)
[2018-10-05] MEDS ORDERED: MIDAZOLAM HCL 1 MG/ML 2ML VIAL ONE (10:50)
[2018-10-05] MEDS ORDERED: fentaNYL citrate 100 MCG/2 ML VIAL ONE (10:50)
[2018-10-05] MEDS ORDERED: IOTHALAMATE MEGLUMINE II 17.2% 250 ML VIAL ONE (11:10)
--- NOTE | 2018-10-05 11:32 | Operative Report ---
Post Operative Report Pre & Post Diagnosis Operation Date: 10/05/18 10:50 Preoperative diagnosis: Right distal ureteral stone with intractable colic. Postoperative diagnosis: Same. Procedure: Cystoscopy, right retrograde pyelography, right semirigid ureteroscopy with laser lithotripsy, basket stone extraction and ureteral stent placement. Surgeon: Dr. Yayo Stafford. Stripper Cutter Machine: None. Drains left in place: 6 Chinese 22 cm right-sided soft double-J ureteral stent. Specimen sent to pathology: Right ureteral stone for chemical analysis. Estimated blood loss: Minimal. Findings: Radiopaque renal stones, ureteral stone fragmented and removed, proximal ureteral tortuosity, questionable UPJ style obstruction good stent position on fluoroscopy. Procedure Operation Date: 10/05/18 10:50 Brief history: Patient is a pleasant 28-year-old female admitted with her first episode of renal colic. She recalls being told she had medullary sponge kidney in the past but did not have any follow-up. She has not had prior surgery or seen a urologist for evaluation in the past. She continues to have intractable colic from her large right distal ureteral stone. She is being brought to the operating today for endoscopic acute management. Risks and benefits were reviewed with the patient vocalizes good understanding of the treatment plan. Informed consent is obtained. Intravenous ciprofloxacin is provided for antibiotic coverage. Procedure: Patient was properly identified and brought into the operative suite after identification of appropriate consent in the chart. General anesthesia with laryngeal mask was initiated and patient was prepped and draped in a standard fashion for this procedure. Full timeout procedure was followed. 22 Chinese rigid cystoscope was introduced into the bladder under direct visualization and bladder was surveyed in its entirety demonstrating no intravesical lesions, papillary masses or calculi. Right-sided ureteral orifice was addressed and gentle retrograde pyelography was performed through a 5 Chinese open-ended catheter. This demonstrated a filling defect in the distal ureter consistent with the patient's known ureteral stone with proximal hydroureteronephrosis. Contrast extended to the kidney poorly. Sensor tip wire was advanced up to the level of the right kidney and kept until the end of the case as a safety wire. A semirigid ureteroscope was introduced in the distal right ureter without the need for dilation and then the stone was encountered. A 200 m laser fiber was used to fragment the stone into smaller pieces which were grasped with a 0 tip basket and extracted. These were sent for chemical analysis. This was continued until the ureter was noted to be free of stone. Ureteroscopy to the level of the proximal ureter demonstrated no residual stones within the lumen of the ureter. Patient was noted however to have tortuosity of her ureter with a curly Q in the wire at the level of the ureteropelvic junction. This raised the question of an inherent UPJ obstruction. Contrast was introduced into the collecting system where it stagnated until drained by the stent at the end of the case. Ureteroscope was removed without evidence of residual ureteral stones on exit ureteroscopy. Cystoscope was backloaded over the safety wire and a 6 Chinese 22 cm double-J ureteral stent was advanced with a full coil being present within the bladder and a coil at the level of the renal pelvis albeit with an extra turn apparently accommodating the proximal tortuosity of the ureter. The cystoscope was removed. Anesthesia was reversed and patient was transferred to recovery room stable condition. Follow-up CARE: Patient can be discharged home later today with oral pain medication and antispasmodics of the bladder. Would cover with Cipro for 2 to 3 days postoperatively. Will arrange for outpatient cystoscopy and stent removal as well as for long-term stone management. Patient should contact our service should she note any fevers, chills, nausea, vomiting or other difficulties in the postoperative period. Surgeon Yayo Stafford MD Stripper Cutter Machine None Estimated Blood Loss 0 Findings Consistent with Post-Op Diagnosis Specimens Right distal ureteral stone for chemical analysis Description of Procedure Cystoscopy, right retrograde pyelography, right semirigid ureteroscopy with laser lithotripsy, basket stone extraction and right ureteral stent placement. I attest to the content of the Intraoperative Record and any orders documented therein. Any exceptions are noted below.
[2018-10-05] MEDS ORDERED: ePHEDrine sulfate 50 MG/ML SYR ONE (11:56)
[2018-10-05] MEDS ORDERED: IOTHALAMATE MEGLUMINE II 17.2% 250 ML VIAL INSTIL SCH (12:00)
--- NOTE | 2018-10-05 12:42 | Anesthesiology Progress Note ---
Date of Service October 05, 2018 Anesthesia Post Procedure Vital Signs Vital Signs: Temp Pulse Pulse Pulse Resp BP BP 10/05/18 12:40 36.4 C L 60 19 10/05/18 12:30 70 18 10/05/18 12:20 53 L 13 10/05/18 12:13 36.0 C L 54 L 12 10/05/18 10:58 36.8 C 53 L 16 10/05/18 07:30 37.0 C 58 L 16 10/05/18 06:45 60 10/04/18 23:39 36.6 C 65 16 10/04/18 21:41 36.4 C L 62 18 10/04/18 20:34 66 18 87/50 L 10/04/18 18:24 73 16 100/55 L 10/04/18 17:38 79 12 96/58 L 10/04/18 17:00 79 16 10/04/18 15:53 37.2 C 98 H 20 94/53 L BP Pulse Ox 10/05/18 12:40 104/75 96 10/05/18 12:30 100/77 100 10/05/18 12:20 91/61 L 96 10/05/18 12:13 90/60 L 93 10/05/18 10:58 97/57 L 100 10/05/18 07:30 98/64 L 99 10/05/18 06:45 91/59 L 10/04/18 23:39 89/58 L 98 10/04/18 21:41 88/53 L 98 10/04/18 20:34 98 10/04/18 18:24 99 10/04/18 17:38 99 10/04/18 17:00 100 10/04/18 15:53 97 Pain Intensity Back: Pain Intensity: 2 Transfer of Care Handoff Completed per policy Notes Mental Status: alert / awake / arousable Patient Amnestic to Procedure: Yes Nausea / Vomiting: adequately controlled Pain: adequately controlled Airway Patency, RR, SpO2: stable & adequate BP & HR: stable & adequate Hydration State: stable & adequate Anesthetic Complications: no major complications apparent
--- NOTE | 2018-10-05 12:59 | Fluoroscopy Report ---
FL retrograde includes kub CLINICAL HISTORY: 28 years-old Female presenting with RIGHT CYSTO. TECHNIQUE: 7 fluoroscopic image(s) recorded as part of an intraoperative procedure. COMPARISON: CT from 10/04/2018. FINDINGS/IMPRESSION: A guidewire was introduced into the right ureter and the right renal collecting system opacified. Mod erate pelvocaliectasis with blunting of calyces noted. Potential filling defects in the collecting sy stem likely correlates with known right nephrolithiasis. Subsequently a right ureteral stent was plac ed. Intrauterine device incidentally noted. Please see surgical report for further details. Fluoroscopy dosage (mGy): 17.47. Fluoroscopy time: 139.9 seconds. Number or time of high level fluoroscopy (HLF), digital spot, or digital subtraction images: 0. Electronically signed by: Mikey Shah M.D. 10/05/2018 12:58 PM
[2018-10-05] MEDS ORDERED: OXYCODONE/ACETAMINOPHEN 5mg/325mg TAB PO PRN (13:46)
[2018-10-05] MEDS ORDERED: PHENAZOPYRIDINE HCL 200 MG TAB PO PRN (13:46)
[2018-10-05] MEDS ORDERED: AMPHETAMINE ASP/SULF/DEXTRAMPH 10 MG TAB PO SCH (14:00)
[2018-10-05] MEDS ORDERED: CIPROFLOXACIN 500 MG TAB PO STA (18:52)
[2018-10-05] MEDS ORDERED: CIPROFLOXACIN 500 MG TAB PO SCH (19:00)
[2018-10-13 09:34] LABS: Component 2 DNR
--- NOTE | 2018-10-14 07:57 | Discharge Summary ---
Date of Service October 05, 2018 Admission HPI Per Admitting Provider Fernanda is a 28-year-old female with a past medical history of ADHD and depression who presents with bilateral flank pain, aches, headache, and chills since Tuesday. She reports her symptoms started on Tuesday with achiness, left lower back pain, headache, and chills. She was not having any dysuria or polyuria. She went to the walk-in clinic and was prescribed ciprofloxacin which she has been taking since Tuesday. She notes that her pain did not improve, and it was the pain that brought her into the emergency department today. She reports she has had a 102 degree fever at home on Tuesday, and 10/10 sharp achy pain in her back and flank L>R before admission. She denies nausea, vomiting, diarrhea, constipation. No polyuria, no hematuria, no dysuria. She has no history of kidney stones. No family history of kidney stones. She denies shortness of breath, chest pain, chest pressure. She endorses low blood pressure at baseline, and frequently gets dizzy and feels like she is going to pass out when she stands up at baseline. She has not seen a doctor for this before. On admission she received IV Rocephin, Toradol 15 mg, and IV morphine. She reports that with these interventions her pain has decreased to a 1/10 at rest. She last took her medications this morning. BEARINGIZER medications include alprazolam, bupropion, ciprofloxacin, dextroamphetamine, lamotrigine, and venlafaxine. M Hx: As noted above SHX: Denies history of surgeries Family history: Endorses pancreatic cancer in her father, hypertension in her mother. Denies family history of coronary artery disease, kidney disease, bleeding/clotting disease, stroke, diabetes. Social: Lives in [facility] in [place]. Tobacco use: No current or former Alcohol: Rare 1-3 times a month Recreational drug: Endorses remote marijuana use, no recreational drug use recently. CODE STATUS: Full code Principal Diagnosis Right distal ureteral stone Discharge Exam General: A&Ox3. NAD. Cooperative. Skin warm and moist. HEENT: Atraumatic, normocephalic. Pupils equal and reactive to light and accommodation. No anterior or posterior cervical or clavicular adenopathy. Pulm: CTAB A&P. -wheezes, -rales, -rhonchi. Symmetrical chest rise. No increase work of breathing. No respiratory distress. Cardiac: RRR, -mrg. Radial pulses intact and symmetrical. Abdominal: Tender to palpation in left lower quadrant, mild right quadrant pain without rebound. Abdomen soft. Bowel sounds intact. Back: R CVA tenderness is present. L tenderness at a 4 cm, firm, nonfluctuant, nontender subcutaneous mass without warmth/erythema is appreciated in the left paraspinal region at approximately T7-T9. Extremity: Moves all extremities equally. Sensation intact in distal extremities. 5/5 finger flexion/extension, wrist flexion/extension, elbow flexion/extension, knee flexion, ankle dorsiflexion/plantarflexion. PT pulses intact and symmetrical. Discharge Data Allergies Allergy/AdvReac Type Severity Reaction Status Date / Time gluten Allergy Unknown GI SYMPTOMS Verified 10/04/18 16:31 milk Allergy Unknown GI SYMPTOMS Verified 10/04/18 16:31 Consultations 10/04/18 18:44 ED Decision to Admit Stat 10/04/18 18:45 Consult Urology Stat 10/04/18 21:34 Consult Urology Routine Procedures Performed Operation Date: 10/05/18 10:50 Actual Procedures p Cystoscopy, Right semi rigid Ureteroscopy, Laser Lithotripsy, basket stone extraction, Right retrograde pyelography, Right Ureteral Stent Placement(Not Applicable) - Yayo Stafford MD Ordered Studies 10/04/18 16:47 CT abd pelvis IV con only Stat 10/05/18 10:00 FL retrograde includes kub Routine Hospital Course (1) Right ureteral stone: On admission: Preliminary UA from walk-in clinic showed GNR for which she had taken 2 days of ciprofloxacin. Now S/P 1 dose of Rocephin in the ED. Urology consulted. S/P Toradol 15 mg, Zofran, morphine in the ED. Dilaudid 0.5 mg every 3 hours as needed pain control N.p.o. in anticipation of cystoscopy Continue Rocephin daily for possible pyelonephritis. Cipro held. Blood cultures and urine cultures pending, patient was on Cipro x2 days before these were drawn On discharge: Patient had right distal ureteral stone. This was removed and placed double J stent. Urology recommended the following Follow-up CARE: Patient can be discharged home with oral pain medication and antispasmodics of the bladder. Would cover with Cipro for 2 to 3 days postoperatively. Will arrange for outpatient cystoscopy and stent removal as well as for long-term stone management. Patient should contact our service should she note any fevers, chills, nausea, vomiting or other difficulties in the postoperative period. Left back mass On admission Exquisitely tender, but without warmth/erythema/fluctuance Denies traumatic injury at onset Unclear duration, she did not notice it a month ago but is unsure how long it is been there On day of discharge: pain improved. Will defer to PCP. Anxiety/depression Continue BEARINGIZER bupropion 300 mg every morning Continue BEARINGIZER lamotrigine 200 mg Continue BEARINGIZER venlafaxine for 50 mg Continue BEARINGIZER alprazolam 1 mg every morning ADHD Held BEARINGIZER dextroamphetamine-amphetamine; will resume at discharge Hypotension She reports a history of lightheadedness/dizziness when standing in a baseline blood pressure in the 90s Clinically suggestive of pots/orthostatic hypotension (2) Anxiety associated with depression: (3) ADHD: (4) Pyelonephritis: Total Time Total Time Spent Total Time Spent (In Minutes): 31 Total Time Includes: Examination of the Patient, Discharge Planning and Medication Reconciliation Discharge Plan Discharge Items Patient Disposition: Home - Self-Care Reason For Visit: FLANK PAIN,KIDNEY STONE Discharge Diagnosis: Kidney stone Discharge Goals: Decrease discomfort Activity: Resume your previous activity Non-emergency contact: Primary Care Provider Call non-emergency contact if: you have any medication questions Follow-up/Referrals: PCPNO [Primary Care Provider] - Diet: Regular Addtl Provider Instructions: Follow-up CARE: Can be discharged home later today with oral pain medication and antispasmodics of the bladder. Would cover with Cipro for 2 to 3 days postoperatively. We will arrange for outpatient cystoscopy and stent removal as well as for long-term stone management. You should contact our service should she note any fevers, chills, nausea, vomiting or other difficulties in the postoperative period. Prescriptions: New phenazopyridine [Pyridium] 200 mg Tablet 200 mg PO TID PRN (Reason: pain urinary) Qty: 6 RF: 0 oxycodone-acetaminophen [Percocet] 5-325 mg Tablet 1 tab PO Q4H PRN (Reason: severe pain) Qty: 16 RF: 0 oxybutynin chloride 5 mg tablet 5 mg PO BID PRN (Reason: bladder spasms) Qty: 14 RF: 0 Continued lamotrigine 200 mg tablet 200 mg PO QAM RF: 0 dextroamphetamine-amphetamine 10 mg tablet 10 mg PO DAILY RF: 0 venlafaxine 150 mg capsule,extended release 24hr 450 mg PO QAM RF: 0 dextroamphetamine-amphetamine 15 mg capsule,extended release 24hr 15 mg PO QAM RF: 0 dextroamphetamine-amphetamine 25 mg capsule,extended release 24hr 25 mg PO QAM RF: 0 bupropion HCl 300 mg tablet extended release 24 hr 300 mg PO QAM RF: 0 bupropion HCl 150 mg tablet extended release 24 hr 150 mg PO QAM RF: 0 alprazolam 1 mg tablet extended release 24 hr 1 mg PO QAM RF: 0 ciprofloxacin HCl 500 mg tablet 500 mg PO BID Qty: 5 RF: 0 Stand-Alone Forms: [employer] [facility] [employer], Opioid Pain Management [employer]/Other Patient Handouts: Kidney Stones Discharge Orders: Discharge Order (Routine); Ordered 10/05/18 Ordered By: Naman Ybarra Admission Data Admit Date/Time: 10/04/18 19:48 Attending Provider: Naman Ybarra Admit Provider: Mikey Elias Primary Care Provider: PCP,NO Other Providers: Dangelo Wiggins Service: Telemetry Other Interventions: Discharge Summary Assessment (RN) Last Done: 10/05/18 19:06 DC Date/Time DO NOT enter until pt leaves facility: 10/05/18 19:50
== END 2018-10-05 19:50 | disposition home or self-care (01) | DRG 660 ==
LOC: ED 15:46 → 3W 19:48 → SUATTDRO 19:48 → 3W 21:15
DX: I95.1 Orthostatic hypotension; F90.9 Attention-deficit hyperactivity disorder, unspecified type; Z91.011 Allergy to milk products; F41.8 Other specified anxiety disorders; Z91.018 Allergy to other foods; Q61.5 Medullary cystic kidney; Z79.899 Other long term (current) drug therapy; N13.6 Pyonephrosis